=== PATIENT | male | born 1985 | race Caucasian/White ===

== ENCOUNTER 2018-08-11 18:00 | Emergency (ER) | payer BC ==
--- NOTE | 2018-08-11 18:04 | ERD ---
ER Documentation Chief Complaint Chief Complaint HPI This is a 33-year-old male who presents for evaluation of a laceration over his left thumb. Patient is right-hand dominant, he works in film production, he was cutting an avocado when this happened, he denies decreased range of motion, does endorse some pain to his finger. No numbness or tingling. ROS All systems reviewed and are negative except as per history of present illness. Allergies Allergies: Coded Allergies: Unknown: Unable to obtain (Unverified , 08/11/18) Physical Exam Physical Exam Const: Well-appearing, nontoxic Head: Atraumatic Eyes: Normal Conjunctiva ENT: Normal External Ears, Nose and Mouth. Neck: Full range of motion. No meningismus. Resp: Normal effort Cardio: Regular rate and rhythm Skin: No petechiae or rashes Ext: L thumb on the palmar aspect there is a 3 cm laceration, there is bleeding, no foreign body. Full range of motion of the PIP and DIP joint, sensation intact light touch. Neur: Awake and alert Psych: Normal Mood and Affect Results 24 hrs Current Medications Medications Dose Sig/Tammi Start Time Status Last (Trade) Ordered Route PRN Stop Time Admin Dose Reason Admin Bupivacaine 10 ml ONCE ONCE 08/11/18 Cancel HCl INJ 18:30 08/11/18 (Marcaine 18:31 0.25% (Mpf) 10 ml) Ibuprofen 600 mg ONCE ONCE 08/11/18 DC (Motrin) PO 18:30 08/11/18 18:31 Diphtheria/ 0.5 ml ONCE ONCE 08/11/18 DC Tetanus/Acell IM* 19:00 08/11/18 Pertussis 19:01 (Adacel) Bupivacaine 1 ml ONCE INJ 08/11/18 DC HCl 19:00 08/11/18 (Marcaine 19:01 0.25% (Mpf) 30 ml) Procedures/MDM 33-year-old male presents for evaluation of uncomplicated laceration of his left hand, no neurovascular deficits, no evidence of tendon injury, no evidence of fracture. Laceration was repaired by Dr. Lott, patient advised to return for follow-up for suture removal, tetanus was updated, at discharge patient was in no acute distress. Departure Diagnosis: Primary Impression: Laceration Condition: Stable CONCEPCION HUIZAR MD Aug 11, 2018 18:03
[2018-08-11] MEDS ORDERED: BUPIVACAINE 0.25% (MPF) 10 ML 10 ML VIAL INJ ONE (18:30)
[2018-08-11] MEDS ORDERED: IBUPROFEN 600 MG TAB PO ONE (18:30)
[2018-08-11] MEDS ORDERED: BUPIVACAINE 0.25% (MPF) 30 ML INJ INJ SCH (19:00)
[2018-08-11] MEDS ORDERED: DIPHTH/TET/ACEL PERTUSS (ADULT) 0.5 ML VIAL IM* ONE (19:00)
[2018-08-11] MEDS ORDERED: HYDR-4011 PO (20:09)
[2018-08-11] MEDS ORDERED: CEPH-443 PO (20:09)
[2018-08-11 20:14] VITALS: BP 131/79; PULSE 77
== END 2018-08-11 20:17 | disposition home or self-care (01) ==
LOC: FTE 18:00
DX: S61.012A Laceration without foreign body of left thumb without damage to nail, initial encounter (principal); W26.8XXA Contact with other sharp object(s), not elsewhere classified, initial encounter; Y92.9 Unspecified place or not applicable; Z23 Encounter for immunization
CPT/HCPCS: 90471; 90715

== ENCOUNTER 2018-08-14 09:49 | Emergency (ER) | payer BC ==
[~2018-08-14] VITALS: Wt 77.0 kg
[~2018-08-14 09:49] MED LIST: CEPH-443 PO; HYDR-4011 PO
[2018-08-14 09:51] VITALS: BP 141/70; PULSE 92; RESP 18
--- NOTE | 2018-08-14 10:38 | ERD ---
ER Documentation Chief Complaint Chief Complaint left thumb lac wound check HPI 33-year-old male, previously healthy, presents to the emergency department, for wound check after a left thumb laceration repaired performed 2 days ago. The patient refers feeling better, pain under control, denies distal weakness, numb ness or tingling. No fever or chills. Good compliance with antibiotics ROS All systems reviewed and are negative except as per history of present illness. Medications Home Meds Active Scripts Hydrocodone/Acetaminophen ([place] 5-325 Tablet) 1 Each Tablet, 1 TAB PO Q6H PRN for PAIN, #7 TAB Prov:CONCEPCION HUIZAR MD 08/11/18 Cephalexin* (Keflex*) 500 Mg Capsule, 500 MG PO QID for 7 Days, CAP Prov:CONCEPCION HUIZAR MD 08/11/18 Allergies Allergies: Coded Allergies: Unknown: Unable to obtain (Unverified , 08/11/18) PMhx/Soc History of Surgery: Yes (Sleeve gastric) Anesthesia Reaction: No Hx Neurological Disorder: No Hx Respiratory Disorders: Yes (childhood asthma) Hx Cardiac Disorders: No Hx Psychiatric Problems: No Hx Miscellaneous Medical Probl: No Hx Alcohol Use: Yes (Every now and then) Hx Substance Use: Yes (Marijuana) Hx Tobacco Use: No Smoking Status: Never smoker FmHx Family History: No diabetes Physical Exam Vitals Vital Signs Date Temp Pulse Resp B/P (MAP) Pulse Ox O2 O2 Flow FiO2 Time Delivery Rate 08/14/18 98.1 92 18 141/70 99 09:51 (93) Physical Exam Const: No acute distress Head: Atraumatic Eyes: Normal Conjunctiva ENT: Normal External Ears, Nose and Mouth. Neck: Full range of motion. No meningismus. Resp: Clear to auscultation bilaterally Cardio: Regular rate and rhythm, no murmurs Abd: Soft, non tender, non distended. Normal bowel sounds Skin: No petechiae or rashes. Left thumb with 8 cm V shape laceration on the anterior aspect, with stitches in place, clean, dry and intact. Distal neurovascular exam intact Back: No midline or flank tenderness Ext: No cyanosis, or edema Neur: Awake and alert Psych: Normal Mood and Affect Procedures/MDM Status post laceration repair 2 days ago. Adequate pain control, no fever, no chills, good compliance with medications no side effects. The patient was evaluated for infection and neurovascular compromise. The wound was clean and irrigated with normal saline, splint placed. Patient is stable, with adequate healing process, okay to discharge home, medication adherence reinforced. some side effects of prescribed medications (headache, rash, nausea, vomiting, diarrhea, drowsiness, habituation, bleeding, hypertension, interactions with other medications) were reviewed. The patient was instructed to follow up with the primary care provider in the next 48h. If symptoms persist, worsen or new symptoms develop, then patient should return to the ED immediately. Instructions explained and given directly by me to the patient with acknowledgment and demonstrated understanding. Disclaimer: Inadvertent spelling and grammatical errors are likely due to EHR/dictation software use and do not reflect on the overall quality of patient care. Also, please note that the electronic time recorded on this note does not necessarily reflect the actual time of the patient encounter. Departure Diagnosis: Primary Impression: Encounter for wound re-check Condition: Stable Patient Instructions: Wound Check, Lac F/U (No Infection) Additional Instructions: Thank you very much for allowing us to participate in your care. Your health and safety is our top priority at [facility]. Call your primary care doctor TOMORROW for an appointment during the next 2-4 days and bring all the information and medications prescribed. Have prescriptions filled and follow precisely the directions on the label. If the symptoms get worse and your provider is unavailable, return to the Emergency Department immediately. ROSE DIOR MD Aug 14, 2018 10:38
== END 2018-08-14 10:50 | disposition home or self-care (01) ==
LOC: FTE 09:49
DX: Z48.01 Encounter for change or removal of surgical wound dressing (principal); J45.909 Unspecified asthma, uncomplicated
CPT/HCPCS: 99281